=== PATIENT | female | born 1985 | race Caucasian/White ===

== ENCOUNTER 2017-12-23 20:12 | Emergency (ER) | payer BC ==
--- NOTE | 2017-12-23 20:23 | ER Document Report ---
ED Medical Screen (RME) - General Chief Complaint: Dog Bite Stated Complaint: DOG BITE TO FACE Time Seen by Provider: 12/23/17 20:18 Notes: Patient is a 32-year-old female that presents to the emergency department for chief complaint of bite to face. Just prior to arrival patient bent forward and was bit in the face by a friend's dog. The dog is up-to-date on vaccinations. Her last tetanus vaccine was 4 years ago. ROS: GENERAL: Denies fever of chills CV: Denies chest pain PHYSICAL EXAMINATION: GENERAL: Well-appearing, well-nourished and in no acute distress. HEAD: Atraumatic, normocephalic. EYES: Pupils equal round extraocular movements intact, conjunctiva are normal. ENT: Nares patent NECK: Normal range of motion LUNGS: No respiratory distress Musculoskeletal: Normal range of motion NEUROLOGICAL: Normal speech, normal gait. PSYCH: Normal mood, normal affect. Skin: Irregular laceration to right lower lip involving the vermilion border, linear laceration to nasolabial fold MDM: Patient seen and examined for rapid initial assessment. Vital signs reviewed. A comprehensive ED assessment and evaluation of the patient, analysis of test results and completion of the medical decision making process will be conducted by additional ED providers. TRAVEL OUTSIDE OF THE [place] IN LAST 30 DAYS: No - Related Data Allergies/Adverse Reactions: No Known Allergies Allergy (Verified 12/23/17 20:13) Physical Exam - Vital signs Vitals: Temp Pulse Resp BP Pulse Ox 97.6 F 90 16 127/90 H 99 12/23/17 20:15 12/23/17 20:15 12/23/17 20:15 12/23/17 20:15 12/23/17 20:15 Course - Vital Signs Vital signs: Temp Pulse Resp BP Pulse Ox 97.6 F 90 16 127/90 H 99 12/23/17 20:15 12/23/17 20:15 12/23/17 20:15 12/23/17 20:15 12/23/17 20:15
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
[2017-12-23] MEDS ORDERED: LIDOCAINE 1% INJ (10 MG/ML) 10 ML MDV INJ ONE (20:52)
[2017-12-23] MEDS ORDERED: LIDOCAINE 1% INJ-PF (10 MG/ML) 30 ML SDV INJ ONE (20:55)
[2017-12-23 22:40] VITALS: BP 134/78
== END 2017-12-23 22:38 | disposition home or self-care (01) ==
LOC: ER 20:12
DX: S01.551A Open bite of lip, initial encounter (principal); W54.0XXA Bitten by dog, initial encounter; Y93.89 Activity, other specified; Y92.009 Unspecified place in unspecified non-institutional (private) residence as the place of occurrence of the external cause
CPT/HCPCS: 99283